=== PATIENT | female | born 1955 | race Caucasian/White ===

== ENCOUNTER 2019-01-20 14:12 | Observation (INO) ==
[2019-01-21 05:08] LABS: BASO# 0.03 X1000 (0.0-0.2); BASO% 0.2 % (0.0-0.8); EOS# 0.28 X1000 (0.0-0.7); EOS% 2.1 % (0.0-10.0); HEMOGLOBIN 9.8 g/dL (12.0-16.0); IMM GRAN# 0.12 X1000 (0.0-0.04); IMM GRAN% 0.9 % (0.0-0.5); LYMPH# 2.04 X1000 (1.2-3.4); LYMPH% 15.5 % (20.5-51.1); MCH 27.6 PG (27-31); MCHC 30.6 g/dL (33-37); MCV 90.1 FL (81-99); MONO# 1.06 X1000 (0.11-0.59); MONO% 8.1 % (1.7-9.3); MPV 9.1 FL (7.4-10.4); NEUT# 9.62 X1000 (1.4-6.5); NEUT% 73.2 % (42.2-75.2); PLT 639 X1000 (130-400); RBC 3.55 XMIL (4.2-5.4); RDW 14.8 % (11.5-14.5); WBC 13.15 X1000 (4.8-10.8)
[2019-01-21 05:16] LABS: AGAP 11; ALB/GLOB RATIO 0.7; ALBUMIN 2.7 g/dL (3.5-5.0); ALKALINE PHOSPHATASE 112 U/L (32-104); BUN 7 mg/dL (8-22); CHLORIDE 101 mmol/L (98-107); COSMO 273; CREATININE 0.5 mg/dL (0.5-0.9); ESTIMATED GFR > 60; GLUCOSE 119 mg/dL (70-104); GOT 17 U/L (10-30); GPT 19 U/L (10-36); POTASSIUM 3.5 mmol/L (3.5-5.1); SODIUM 137 mmol/L (136-145); TCO2 25 mmol/L (25-35); TOTAL BILIRUBIN 0.25 mg/dL (0.20-1.00); TOTAL PROTEIN 6.5 g/dL (6.3-8.3)
[2019-01-22 18:54] VITALS: BP 129/50
== END 2019-01-22 19:37 | disposition home or self-care (01) ==
LOC: INTOOBSV 14:12 → DIRADM 14:12 → 1N 14:51
PROVIDERS: ADMIT Internal Medicine; ATTEND Internal Medicine